=== PATIENT | female | born 1940 | race Caucasian/White ===

== ENCOUNTER 2017-03-18 14:52 | Outpatient (CLI) | payer MEDICARE, OTHER ==
[2017-03-18 15:40] LABS: ALT (SGPT) 14 U/L (0-55); AST (SGOT) 16 U/L (5-34); Albumin 4.3 g/dL (3.4-4.8); Alkaline Phosphatase 86 U/L (40-150); Anion Gap 11 mmol/L (10-20); BUN (Urea Nitrogen) 15 mg/dL (9.8-20.1); Bilirubin, Total 0.8 mg/dL (0.2-1.2); Calc. Creatinine Clearance 0 mL/min (70-130); Calcium 9.3 mg/dL (7.8-10.44); Carbon Dioxide 27 mmol/L (23-31); Cardiac Risk 4.7 (Less than 4.5); Chloride 108 mmol/L (98-107); Cholesterol 232 mg/dL (< 200 Desired); Estimated GFR-MDRD 75; Globulin 2.7 g/dL (2.4-3.5); Glucose 84 mg/dL (83-110); HDL Cholesterol 49 mg/dL (>60 Neg Risk); LDL Cholesterol, Calculated 154 mg/dL; Potassium 4.1 mmol/L (3.5-5.1); Sodium 142 mmol/L (136-145); Triglycerides 145 mg/dL (Less than 150)
[2017-03-18 16:07] LABS: #Basophils 0.1 thou/uL (0.0-0.2); #Eosinphils 0.1 thou/uL (0.0-0.7); #Lymphocytes 3.2 thou/uL (1.20-3.40); #Monocytes 0.5 thou/uL (0.11-0.59); #Neutrophils 3.1 thou/uL (1.40-6.50); %Basophils 0.9 % (0.0-1.0); %Eosinophils 1.8 % (0.0-10.0); %Lymphocytes 45.9 % (21.0-51.0); %Monocytes 7.5 % (0.0-10.0); %Neutrophils 43.9 % (42.0-75.0); Hemoglobin 16.5 g/dL (12.0-16.0); Mean Corpuscular HGB CONC 33.1 g/dL (32.0-36.0); Mean Corpuscular Hemoglobin 32.3 pg (27.0-31.0); Mean Corpuscular Volume 97.6 fl (81.0-99.0); Mean Platelet Volume 6.1 fL (7.4-10.4); Platelet Count 239 thou/uL (130-400); RBC Distribution Width 11.9 % (11.5-14.5); Red Blood Cell (RBC) Count 5.12 mill/uL (4.20-5.40)
== END 2017-03-18 14:53 | disposition home or self-care (01) ==
LOC: HPCALD 14:52
PROVIDERS: ATTEND Family Medicine
DX: Z13.6 Encounter for screening for cardiovascular disorders (principal); Z00.00 Encounter for general adult medical examination without abnormal findings
CPT/HCPCS: 36415; 80053; 80061; 85025

== ENCOUNTER 2017-03-18 15:15 | Outpatient (CLI) | payer MEDICARE | END 2017-03-18 15:16 | disposition home or self-care (01) | LOC: BUREKG 15:15 | PROVIDERS: ATTEND Family Medicine | DX: Z00.00 Encounter for general adult medical examination without abnormal findings (principal) | CPT/HCPCS: 36415; 80053; 80061; 85025; 93005; 93010 ==

== ENCOUNTER 2017-03-22 09:09 | Outpatient (CLI) | payer MEDICARE ==
[2017-03-22 11:08] LABS: Hemoglobin 16.3 g/dL (12.0-16.0); Mean Corpuscular HGB CONC 33.2 g/dL (32.0-36.0); Mean Corpuscular Hemoglobin 31.3 pg (27.0-31.0); Mean Corpuscular Volume 94.1 fl (81.0-99.0); Mean Platelet Volume 6.3 fL (7.4-10.4); Platelet Count 236 thou/uL (130-400); RBC Distribution Width 11.6 % (11.5-14.5); Red Blood Cell (RBC) Count 5.22 mill/uL (4.20-5.40); White Blood Cell (WBC) Count 5.6 thou/uL (4.8-10.8)
[2017-03-22 11:12] LABS: Eosinophils 6 % (0-10); Lymphocytes 50 % (21-51); MDiff Complete? YES; Monocytes 4 % (0-10); Neutrophil 40 % (42-75)
== END 2017-03-22 09:10 | disposition home or self-care (01) ==
LOC: HPCALD 09:09
PROVIDERS: ATTEND Family Medicine
DX: D75.1 Secondary polycythemia (principal)
CPT/HCPCS: 36415; 82668; 85025

== ENCOUNTER 2017-12-01 08:07 | Emergency (ER) | payer MEDICARE ==
[2017-12-01] MEDS ORDERED: diphenhydrAMINE 50 MG/ML VIAL ONE (08:32)
[2017-12-01] MEDS ORDERED: Metoclopramide HCl 10 MG/2 ML VIAL ONE (08:32)
[2017-12-01 08:43] LABS: #Basophils 0.1 thou/uL (0.0-0.2); #Lymphocytes 1.7 thou/uL (1.20-3.40); #Monocytes 0.6 thou/uL (0.11-0.59); #Neutrophils 2.2 thou/uL (1.40-6.50); %Basophils 1.2 % (0.0-1.0); %Eosinophils 0.4 % (0.0-10.0); %Lymphocytes 37.7 % (21.0-51.0); %Monocytes 12.1 % (0.0-10.0); %Neutrophils 48.6 % (42.0-75.0); Hemoglobin 15.5 g/dL (12.0-16.0); Mean Corpuscular HGB CONC 32.8 g/dL (32.0-36.0); Mean Corpuscular Hemoglobin 29.7 pg (27.0-31.0); Mean Corpuscular Volume 90.4 fl (81.0-99.0); Mean Platelet Volume 5.6 fL (7.4-10.4); Platelet Count 174 thou/uL (130-400); RBC Distribution Width 12.1 % (11.5-14.5); Red Blood Cell (RBC) Count 5.23 mill/uL (4.20-5.40); White Blood Cell (WBC) Count 4.6 thou/uL (4.8-10.8)
[2017-12-01 08:57] LABS: ALT (SGPT) 13 U/L (8-55); AST (SGOT) 17 U/L (5-34); Albumin 3.7 g/dL (3.4-4.8); Alkaline Phosphatase 84 U/L (40-150); Anion Gap 16 mmol/L (10-20); BUN (Urea Nitrogen) 9 mg/dL (9.8-20.1); Bilirubin, Total 0.4 mg/dL (0.2-1.2); Calc. Creatinine Clearance 0 mL/min (70-130); Calcium 8.7 mg/dL (7.8-10.44); Carbon Dioxide 24 mmol/L (23-31); Chloride 105 mmol/L (98-107); Estimated GFR-MDRD 88; Globulin 3.1 g/dL (2.4-3.5); Glucose 115 mg/dL (83-110); Protein, Total 6.8 g/dL (6.0-8.3); Sodium 141 mmol/L (136-145)
--- NOTE | 2017-12-01 09:14 | CT ---
CT BRAIN WITHOUT CONTRAST: HISTORY: Headache. FINDINGS: No evidence of acute infarct, hemorrhage, midline shift, or abnormal extraaxial fluid collections is seen. The ventricular size is normal and the basilar cisterns are patent. The bony calvarium is int act. The visualized paranasal sinuses and mastoid air cells are well aerated. IMPRESSION: No CT evidence of acute intracranial process. POS: [facility]
== END 2017-12-01 10:15 | disposition home or self-care (01) ==
LOC: BURERS 08:07
DX: J11.1 Influenza due to unidentified influenza virus with other respiratory manifestations (principal)
CPT/HCPCS: 70450; 80053; 85025; 87804; 96361; 96365; 96375; J1200; J2765

== ENCOUNTER 2019-03-08 09:59 | Emergency (ER) | payer MEDICARE ==
[~2019-03-08 09:59] MED LIST: Iopamidol 370 76% 100 ML VIAL ONE
[2019-03-08] MEDS ORDERED: Ketorolac Tromethamine 30 MG/ML VIAL ONE (10:32)
[2019-03-08] MEDS ORDERED: Fentanyl 100 MCG/2 ML VIAL ONE ×2 (10:32→12:18)
[2019-03-08 10:58] LABS: #Lymphocytes 2.1 thou/uL (1.20-3.40); #Monocytes 0.9 thou/uL (0.11-0.59); #Neutrophils 7.2 thou/uL (1.40-6.50); %Basophils 0.3 % (0.0-1.0); %Eosinophils 0.1 % (0.0-10.0); %Lymphocytes 20.1 % (21.0-51.0); %Monocytes 8.4 % (0.0-10.0); Eosinophils 1 % (0-10); Hemoglobin 13.8 g/dL (12.0-16.0); Lymphocytes 16 % (21-51); MDiff Complete? YES; Mean Corpuscular Hemoglobin 27.7 pg (27.0-31.0); Mean Corpuscular Volume 86.4 fL (78.0-98.0); Mean Platelet Volume 6.1 fL (7.4-10.4); Monocytes 6 % (0-10); Neutrophil 77 % (42-75); Platelet Count 232 thou/uL (130-400); RBC Distribution Width 15.1 % (11.5-14.5); Red Blood Cell (RBC) Count 4.98 mill/uL (4.20-5.40); White Blood Cell (WBC) Count 10.2 thou/uL (4.8-10.8)
[2019-03-08 11:21] LABS: Anion Gap 14 mmol/L (10-20); BUN (Urea Nitrogen) 8 mg/dL (9.8-20.1); Calc. Creatinine Clearance 0 mL/min (70-130); Carbon Dioxide 23 mmol/L (23-31); Chloride 102 mmol/L (98-107); Estimated GFR-MDRD Greater than 90; Potassium 3.8 mmol/L (3.5-5.1); Sodium 136 mmol/L (136-145)
[2019-03-08 11:22] LABS: Calcium 9.2 mg/dL (7.8-10.44); Glucose 121 mg/dL (83-110)
[2019-03-08] MEDS ORDERED: Ondansetron PF 4 MG/2 ML Vial ONE (11:35)
[2019-03-08 12:02] LABS: Clarity Clear (Clear); Leukocyte Trace (Negative); Nitrite Negative (Negative); Protein, Urine (Dipstick) Negative (Neg-Trace)
[2019-03-08 12:03] LABS: Bacteria/HPF Rare-Few HPF (None Seen); Bilirubin Negative (Negative); Blood, Urine Trace (Negative); Crystals/HPF None Seen HPF (Negative); Glucose, Urine (Dipstick) Negative (Negative); Hyaline Casts/LPF NONE SEEN LPF (0-3 Hyaline); Other Casts/LPF None Seen LPF (0-3 Hyaline); Oval Fat Bodies/HPF None Seen HPF (None Seen); RBC/HPF 0-3 HPF (0-3); Renal Epithelial None Seen HPF (0-3); Sperm/HPF None Seen HPF (None Seen); Squamous Epithelial 0-3 HPF (0-3); Transitional Epithelial NONE SEEN HPF (0-3); Trichomonas/HPF None Seen HPF (None Seen); Urobilinogen 0.2 mg/dL (0.2-1.0); WBC/HPF 0-3 HPF (0-3); Yeast-All Forms None Seen HPF (None Seen)
--- NOTE | 2019-03-08 12:03 | CT ---
FCT neck soft tissues with contrast: 03/08/2019 11:35 AM HISTORY: 78-year-old female with severe right neck pain and throat pain. Dr. Polk discussed the findings by telephone with Dr. Maria R Hernandez of the [facility] emergency department at 11:50 AM on 03/08/2019. FINDINGS: There is a large 2.5 x 2.7 x 1.9 cm saccular aneurysm lumen filled with IV contrast arising from a ve ry tortuous right internal carotid artery. The afferent and efferent limbs of the right internal palacios tid artery are close to each other at the inferior aspect of this aneurysm lumen. At the posterior as pect of this lumen, there is a small, shallow outpouching of contrast material, which may represent t he site of active leaking. The aneurysm lumen is surrounded by a moderately large region of moderatel y low attenuation in the right carotid space, displacing adjacent structures peripherally, probably r epresenting hematoma and/or phlegmon. There is moderately low attenuation material extends into the r etropharyngeal space. The distal portion of the cervical right internal carotid artery at the C2 leve l becomes severely stenotic, surrounded by the large hematoma. Distal to that, the far distal extracr anial right internal carotid artery regains its normal caliber. The right carotid siphon is patent. The low-attenuation material anteriorly displaces the posterior pharyngeal wall at midline and especi ally to the right of midline, and some to the left of midline, anteriorly displacing the larynx. It i nfiltrates into adjacent portions of right submandibular space and right parapharyngeal space. Incidentally, the right carotid space hematoma extrinsically laterally displaces, compresses, and minda rows the right internal jugular vein, such that inferior to that, the right internal jugular vein is very dilated due to backflow increased pressure. IMPRESSION: 1. 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 2. This is surrounded by large, hematoma, phlegmon, or combination of both, infiltrating into multipl e adjacent spaces, including retropharyngeal space, down to the C7-T1 level.
[2019-03-08 12:31] LABS: PTT 27.5 SEC (22.9-36.1); Prothrombin Time 12.9 SEC (12.0-14.7)
[2019-03-08 12:33] LABS: ALT (SGPT) 8 U/L (8-55); AST (SGOT) 11 U/L (5-34); Albumin 3.9 g/dL (3.4-4.8); Alkaline Phosphatase 94 U/L (40-150); Bilirubin, Direct 0.4 mg/dL (0.1-0.3); Bilirubin, Total 0.8 mg/dL (0.2-1.2); Protein, Total 7.2 g/dL (6.0-8.3)
== END 2019-03-08 14:05 | disposition short-term general hospital (02) ==
LOC: BURERS 09:59
DX: I67.1 Cerebral aneurysm, nonruptured (principal)
CPT/HCPCS: 70491; 80048; 80076; 81003; 81015; 85025; 85610; 85730; 87040; 93005; 96365; 96375; 96376; J1885; J2405; J3010; J3490; Q9967

== ENCOUNTER 2023-01-07 10:36 | Emergency (ER) | payer MEDICARE | END 2023-01-07 13:02 | disposition home or self-care (01) | LOC: BURERS 10:36 | DX: S90.31XA Contusion of right foot, initial encounter (principal); S80.11XA Contusion of right lower leg, initial encounter; X58.XXXA Exposure to other specified factors, initial encounter ==

== ENCOUNTER 2023-08-22 10:15 | Outpatient (CLI) | payer MEDICARE | END 2023-08-22 10:16 | disposition home or self-care (01) | LOC: BURRAD 10:15 | PROVIDERS: ATTEND Family Medicine | DX: S39.012A Strain of muscle, fascia and tendon of lower back, initial encounter (principal); M47.816 Spondylosis without myelopathy or radiculopathy, lumbar region; M43.16 Spondylolisthesis, lumbar region; M41.9 Scoliosis, unspecified | CPT/HCPCS: 72110 ==